=== PATIENT | female | born 1995 | race Caucasian/White ===

== ENCOUNTER 2019-08-19 21:13 | Emergency (ER) | payer BC ==
--- NOTE | 2019-08-19 22:13 | EDM.PDOC ---
ED HPI GENERAL MEDICAL PROBLEM - General Chief Complaint: General Stated Complaint: LIGHTHEADED; TINGLING TO HANDS Time Seen by Provider: 08/19/19 21:45 Source of Information: Reports: Patient History Limitations: Reports: No Limitations - History of Present Illness INITIAL COMMENTS - FREE TEXT/NARRATIVE: states she was sitting with friends when she felt sudden onset of generalized weakness tiredness , like she was going to pass out denies any headache , blurred vision , no chest pain , no palpitations, no cough , no sore throat , no abdominal pain , no diarrhea on thursday she had episode of viral gastroenteritis , since then has been feeling well has history of prior syncopal episode Onset: Today Onset Date: 08/19/19 Duration: Hour(s): (2), Waxing/Waning Location: Reports: Generalized Severity: Mild Associated Symptoms: Reports: Malaise, Weakness. Denies: Confusion, Headaches, Loss of Appetite, Nausea/Vomiting - Related Data Allergies Allergy/AdvReac Type Severity Reaction Status Date / Time No Known Allergies Allergy Verified 08/19/19 21:56 Home Meds: Home Meds NK [No Known Home Meds] 08/19/19 [History] ED ROS GENERAL - Review of Systems Review Of Systems: Comprehensive ROS is negative, except as noted in HPI. ED EXAM, GENERAL - Physical Exam Exam: See Below Exam Limited By: No Limitations General Appearance: Alert, WD/WN, No Apparent Distress Eye Exam: Bilateral Eye: EOMI Ears: Normal External Exam Nose: Normal Inspection Throat/Mouth: Normal Oropharynx Head: Atraumatic Neck: Supple, Non-Tender Respiratory/Chest: No Respiratory Distress, Lungs Clear GI/Abdominal: Soft, Non-Tender Extremities: Normal Range of Motion, Non-Tender, No Pedal Edema Neurological: Alert, Oriented, CN II-XII Intact Psychiatric: Normal Affect Course - Vital Signs Last Recorded V/S: Last Vital Signs Temp 36.8 C 08/19/19 21:15 Pulse 95 08/19/19 21:15 Resp 14 08/19/19 21:15 BP 125/65 08/19/19 21:15 Pulse Ox 99 08/19/19 21:15 - Orders/Labs/Meds Labs: Laboratory Tests 08/19/19 08/19/19 08/19/19 Range/Units 22:20 22:30 22:30 WBC 10.0 (4.5-12.0) X10-3/uL RBC 5.35 H (3.23-5.20) x10(6)uL Hgb 15.8 H (11.5-15.5) g/dL Hct 45.9 (30.0-51.3) % MCV 85.8 (80-96) fL MCH 29.5 (27.7-33.6) pg MCHC 34.4 (32.2-35.4) g/dL RDW 11.6 (11.5-15.5) % Plt Count 355 (125-369) X10(3)uL MPV 7.2 L (7.4-10.4) fL Neut % (Auto) 83.6 H (46-82) % Lymph % (Auto) 11.3 L (13-37) % [place] % (Auto) 4.5 (4-12) % Eos % (Auto) 0 L (1.0-5.0) % Baso % (Auto) 1 (0-2) % Neut # (Auto) 8.3 (1.6-8.3) # Lymph # (Auto) 1.1 (0.6-5.0) # [place] # (Auto) 0.4 (0.0-1.3) # Eos # (Auto) 0.0 (0.0-0.8) # Baso # (Auto) 0.1 (0.0-0.2) # Sodium 143 (135-145) mmol/L Potassium 3.6 (3.5-5.3) mmol/L Chloride 104 (100-110) mmol/L Carbon Dioxide 27 (21-32) mmol/L BUN 7 (7-18) mg/dL Creatinine 0.6 (0.55-1.02) mg/dL Est Cr Clr Drug Dosing TNP Estimated GFR (MDRD) > 60 (>60) BUN/Creatinine Ratio 11.7 (9-20) Glucose 121 H (80-116) mg/dL Calcium 9.2 (8.6-10.2) mg/dL Urine Color Yellow (YELLOW) Urine Appearance Clear (CLEAR) Urine pH 5.0 (5.0-6.5) Ur Specific [place] 1.005 L (1.010-1.025) Urine Protein Negative (NEGATIVE) mg/dL Urine Glucose (UA) Normal (NORMAL) mg/dL Urine Ketones Negative (NEGATIVE) mg/dL Urine Occult Blood Negative (NEGATIVE) Urine Nitrite Negative (NEGATIVE) Urine Bilirubin Negative (NEGATIVE) Urine Urobilinogen Normal (NEGATIVE) mg/dL Ur Leukocyte Esterase Negative (NEGATIVE) Urine RBC 0-5 (0-5) Urine WBC 0-5 (0-5) Ur Squamous Epith Cells Few H (NS,R,O) Urine Bacteria Few H (NS) - Re-Assessments/Exams Free Text/Narrative Re-Assessment/Exam: 08/19/19 22:55 labs all normal pt to follow up with pCP if any other concerns Departure - Departure Time of Disposition: 22:57 Disposition: Home, Self-Care 01 Condition: Fair Clinical Impression: Fatigue - Discharge Information *PRESCRIPTION DRUG MONITORING PROGRAM REVIEWED*: Not Applicable *COPY OF PRESCRIPTION DRUG MONITORING REPORT IN PATIENT MO: Not Applicable Instructions: Near-Syncope, [id number], Weakness, [id number] Referrals: PCP,Not In Area [Primary Care Provider] - Forms: ED Department Discharge Additional Instructions: Follow up with your PCP for further evaluation Sepsis Event Note - Focused Exam Vital Signs: Vital Signs Temp Pulse Resp BP Pulse Ox 08/19/19 21:15 36.8 C 95 14 125/65 99 Date Exam was Performed: 08/19/19 Time Exam was Performed: 22:55
== END 2019-08-19 23:10 | disposition home or self-care (01) ==
LOC: FB.ED 21:13
DX: R53.83 Other fatigue (principal)
CPT/HCPCS: 36415; 80048; 81001; 85025; 99284